=== PATIENT | female | born 1945 | race Caucasian/White ===

== ENCOUNTER 2017-12-03 06:55 | Emergency (ER) | payer OTHER ==
[2017-12-03 08:56] LABS: URINE BLOOD (Dip) POC 1+ (NEGATIVE); URINE KETONES (Dip) POC 4+ (NEGATIVE); URINE LEUKOCYTE EST (Dip) POC Trace (NEGATIVE); URINE NITRITE (Dip) POC Negative (NEGATIVE); URINE TOTAL PROTEIN POC 2+ (NEGATIVE)
[2017-12-03 08:56] LABS: URINE PH (Dip) POC 5.5 (5.0-8.5)
[2017-12-03] MEDS: SOD CHLORIDE 0.9% 1,000 ML IV (10:00)
[2017-12-03 10:07] LABS: ADD MAN DIFF? NO
[2017-12-03 10:09] LABS: WHITE BLOOD COUNT 9.2 10^3/ul (4.8-10.8)
[2017-12-03 10:09] LABS: BASOPHILS % 0.4 % (0.0-2.0); EOSINOPHILS % 0.2 % (0.0-7.0); HEMATOCRIT 43.6 % (37.0-47.0); HEMOGLOBIN 15.3 g/dl (12.0-16.0); LYMPHOCYTES # 1.6 10^3/ul (0.8-2.9); LYMPHOCYTES % 17.3 % (15.0-51.0); MEAN CORPUSCULAR HEMOGLOBIN 30.1 pg (29.0-33.0); MEAN CORPUSCULAR HGB CONC 35.1 g/dl (32.0-37.0); MEAN CORPUSCULAR VOLUME 85.8 fl (82.0-101.0); MONOCYTE # 0.4 10^3/ul (0.3-0.9); MONOCYTES % 4.3 % (0.0-11.0); NEUTROPHIL # 7.1 10^3/ul (1.6-7.5); NEUTROPHILS % 77.4 % (39.0-77.0); PLATELET COUNT 314 10^3/UL (140-415); RED BLOOD COUNT 5.08 10^6/ul (4.20-5.40); RED CELL DISTRIBUTION WIDTH 11.9 % (11.5-14.5)
[2017-12-03 10:32] LABS: ALANINE AMINOTRANSFERASE 21 IU/L (13-69); ALBUMIN 4.8 g/dl (3.3-4.9); ALBUMIN/GLOBULIN RATIO 1.26; ALKALINE PHOSPHATASE 163 IU/L (42-121); ANION GAP 21 (8-16); ASPARTATE AMINO TRANSFERASE 19 IU/L (15-46); BILIRUBIN,INDIRECT 0.4 mg/dl (0-1.1); BILIRUBIN,TOTAL 0.4 mg/dl (0.2-1.3); BLOOD UREA NITROGEN 12 mg/dl (7-20); CALCIUM 9.5 mg/dl (8.4-10.2); CARBON DIOXIDE 26 mmol/L (21-31); CHLORIDE 97 mmol/L (97-110); CREATININE 0.53 mg/dl (0.44-1.00); POTASSIUM 3.3 mmol/L (3.5-5.1); SODIUM 141 mmol/L (135-144); TOTAL PROTEIN 8.6 g/dl (6.1-8.1)
[2017-12-03 10:34] LABS: GLUCOSE 434 mg/dl (70-220)
[2017-12-03] MEDS: POTASSIUM CHLORIDE (SR) 20 MEQ TAB PO (11:53)
[2017-12-03 11:54] LABS: ADD UMIC YES; UR ASCORBIC ACID NEGATIVE (NEGATIVE); UR BILIRUBIN (Dip) NEGATIVE (NEGATIVE); UR BLOOD (Dip) 1+ mg/dL (NEGATIVE); UR CLARITY SLIGHTLY CLOUDY (CLEAR); UR COLOR STRAW (YELLOW); UR GLUCOSE (Dip) 3+ mg/dL (NEGATIVE); UR KETONES (Dip) 1+ mg/dL (NEGATIVE); UR LEUKOCYTE ESTERASE (Dip) 1+ Leu/ul (NEGATIVE); UR NITRITE (Dip) NEGATIVE (NEGATIVE); UR RBC 4 /HPF (0-5); UR SPECIFIC GRAVITY (Dip) 1.031 (1.003-1.030); UR TOTAL PROTEIN (Dip) 2+ mg/dl (NEGATIVE); UR UROBILINOGEN (Dip) NEGATIVE (NEGATIVE); UR WBC 135 /HPF (0-5)
[2017-12-03] MEDS: CEPHALEXIN 500 MG CAP PO (12:20)
== END 2017-12-03 12:24 | disposition home or self-care (01) ==
LOC: FTE 06:55
DX: E11.65 Type 2 diabetes mellitus with hyperglycemia (principal); N39.0 Urinary tract infection, site not specified; I10 Essential (primary) hypertension; Z79.82 Long term (current) use of aspirin; Z79.84 Long term (current) use of oral hypoglycemic drugs
CPT/HCPCS: 80053; 81001; 81003; 82962; 85025; 87086; 99284-25

== ENCOUNTER 2018-03-03 16:49 | Observation (INO) | payer OTHER ==
[2018-03-03] MEDS: SOD CHLORIDE 0.9% 500 ML IV (19:43)
[2018-03-03 19:50] LABS: ADD MAN DIFF? NO
[2018-03-03 19:53] LABS: BASOPHIL # 0.1 10^3/ul (0.0-0.1); BASOPHILS % 0.7 % (0.0-2.0); EOSINOPHILS % 0.2 % (0.0-7.0); HEMATOCRIT 41.2 % (37.0-47.0); HEMOGLOBIN 14.7 g/dl (12.0-16.0); LYMPHOCYTES # 2.3 10^3/ul (0.8-2.9); LYMPHOCYTES % 27.9 % (15.0-51.0); MEAN CORPUSCULAR HEMOGLOBIN 31.2 pg (29.0-33.0); MEAN CORPUSCULAR HGB CONC 35.7 g/dl (32.0-37.0); MEAN CORPUSCULAR VOLUME 87.5 fl (82.0-101.0); MEAN PLATELET VOLUME 10.6 fl (7.4-10.4); MONOCYTE # 0.7 10^3/ul (0.3-0.9); MONOCYTES % 8.1 % (0.0-11.0); NEUTROPHIL # 5.2 10^3/ul (1.6-7.5); NEUTROPHILS % 62.7 % (39.0-77.0); PLATELET COUNT 339 10^3/UL (140-415); RED BLOOD COUNT 4.71 10^6/ul (4.20-5.40); RED CELL DISTRIBUTION WIDTH 12.1 % (11.5-14.5)
[2018-03-03 19:53] LABS: WHITE BLOOD COUNT 8.3 10^3/ul (4.8-10.8)
[2018-03-03 20:18] LABS: ALANINE AMINOTRANSFERASE 26 IU/L (13-69); ALBUMIN 4.7 g/dl (3.3-4.9); ALBUMIN/GLOBULIN RATIO 1.17; ALKALINE PHOSPHATASE 165 IU/L (42-121); ANION GAP 20 (8-16); ASPARTATE AMINO TRANSFERASE 26 IU/L (15-46); BILIRUBIN,INDIRECT 0.4 mg/dl (0-1.1); BILIRUBIN,TOTAL 0.4 mg/dl (0.2-1.3); BLOOD UREA NITROGEN 17 mg/dl (7-20); CALCIUM 9.6 mg/dl (8.4-10.2); CARBON DIOXIDE 23 mmol/L (21-31); CHLORIDE 96 mmol/L (97-110); CREATININE 0.59 mg/dl (0.44-1.00); GLUCOSE 360 mg/dl (70-220); POTASSIUM 4.1 mmol/L (3.5-5.1); SODIUM 135 mmol/L (135-144); TOTAL PROTEIN 8.7 g/dl (6.1-8.1)
[2018-03-03 20:30] LABS: TROPONIN-I < 0.012 ng/ml (0.000-0.120)
[2018-03-03] MEDS: LABETALOL HCL 20MG INJ IV (20:48)
[2018-03-03 20:50] LABS: MAGNESIUM 1.8 mg/dl (1.7-2.5)
[2018-03-03] MEDS ORDERED: ACETAMINOPHEN 325 MG TAB PO (22:30)
[2018-03-03] MEDS ORDERED: ONDANSETRON 4 MG INJ IV (22:30)
[2018-03-04] MEDS ORDERED: METOPROLOL 25 MG TAB PO ×2 (03:30→09:00)
[2018-03-04] MEDS: METOPROLOL 25 MG TAB PO (03:37)
[2018-03-04] MEDS ORDERED: NITROGLYCERIN (SL) 0.4 MG TAB SL ×2 (05:00→08:00)
[2018-03-04] MEDS ORDERED: ACETAMINOPHEN 325 MG TAB PO (05:00)
[2018-03-04] MEDS ORDERED: morphine 2 MG INJ IV (05:00)
[2018-03-04] MEDS ORDERED: ONDANSETRON 4 MG INJ IV (05:00)
[2018-03-04] MEDS: hydrALAzine 20 MG INJ IV (05:23)
[2018-03-04] MEDS ORDERED: GLUCOSE GEL 15 GRAM TUBE PO ×2 (05:30)
[2018-03-04] MEDS ORDERED: GLUCAGON 1 MG INJ IM (05:30)
[2018-03-04] MEDS ORDERED: GLUCOSE GEL 15 GRAM TUBE BUCCAL (05:30)
[2018-03-04] MEDS ORDERED: DEXTROSE 50% 50 ML SYRINGE IV ×2 (05:30)
[2018-03-04 06:14] LABS: ADD MAN DIFF? NO
[2018-03-04 06:27] LABS: WHITE BLOOD COUNT 7.2 10^3/ul (4.8-10.8)
[2018-03-04 06:27] LABS: BASOPHIL # 0.1 10^3/ul (0.0-0.1); BASOPHILS % 0.7 % (0.0-2.0); EOSINOPHILS % 0.6 % (0.0-7.0); HEMOGLOBIN 14.2 g/dl (12.0-16.0); LYMPHOCYTES # 1.7 10^3/ul (0.8-2.9); LYMPHOCYTES % 24.2 % (15.0-51.0); MEAN CORPUSCULAR HEMOGLOBIN 30.3 pg (29.0-33.0); MEAN CORPUSCULAR HGB CONC 34.6 g/dl (32.0-37.0); MEAN CORPUSCULAR VOLUME 87.6 fl (82.0-101.0); MEAN PLATELET VOLUME 10.7 fl (7.4-10.4); MONOCYTE # 0.7 10^3/ul (0.3-0.9); MONOCYTES % 9.4 % (0.0-11.0); NEUTROPHIL # 4.7 10^3/ul (1.6-7.5); NEUTROPHILS % 64.8 % (39.0-77.0); PLATELET COUNT 336 10^3/UL (140-415); RED BLOOD COUNT 4.68 10^6/ul (4.20-5.40); RED CELL DISTRIBUTION WIDTH 12.2 % (11.5-14.5)
[2018-03-04 06:41] LABS: INR 0.93; PROTIME 12.5 Sec (11.9-14.9)
[2018-03-04 06:42] LABS: PARTIAL THROMBOPLASTIN TIME 29.4 Sec (25.0-35.0)
[2018-03-04] MEDS: INSULIN GLARGINE [LANtus] 3 ML PEN SC ×2 (06:48→08:21)
[2018-03-04 07:01] LABS: ALANINE AMINOTRANSFERASE 16 IU/L (13-69); ALBUMIN 4.2 g/dl (3.3-4.9); ALKALINE PHOSPHATASE 139 IU/L (42-121); ANION GAP 16 (8-16); ASPARTATE AMINO TRANSFERASE 20 IU/L (15-46); BILIRUBIN,INDIRECT 0.4 mg/dl (0-1.1); BILIRUBIN,TOTAL 0.4 mg/dl (0.2-1.3); BLOOD UREA NITROGEN 9 mg/dl (7-20); CALCIUM 9.3 mg/dl (8.4-10.2); CARBON DIOXIDE 24 mmol/L (21-31); CHLORIDE 102 mmol/L (97-110); CHOL/HDL RATIO 3.1 RATIO; CHOLESTEROL 195 mg/dl (100-200); CREATININE 0.49 mg/dl (0.44-1.00); GLUCOSE 257 mg/dl (70-220); HDL CHOLESTEROL 62 mg/dl (33-92); LDL CHOLESTEROL,CALCULATED 118 mg/dl; MAGNESIUM 1.8 mg/dl (1.7-2.5); PHOSPHORUS 3.4 mg/dl (2.5-4.9); POTASSIUM 4.2 mmol/L (3.5-5.1); SODIUM 138 mmol/L (135-144); TRIGLYCERIDES 73 mg/dl (0-149)
[2018-03-04] MEDS: NITROGLYCERIN (SL) 0.4 MG TAB SL (07:30)
[2018-03-04 07:45] LABS: HEMOGLOBIN A1C 9.5 % (0-5.9)
[2018-03-04] MEDS: metFORMIN 500 MG TAB PO (08:14)
[2018-03-04] MEDS: METOPROLOL (XL) 100 MG TAB PO (08:15)
[2018-03-04] MEDS: ASPIRIN 81 MG TAB PO (08:15)
[2018-03-04] MEDS: EZETIMIBE 10 MG TAB PO (08:16)
[2018-03-04] MEDS: ASPIRIN (EC) 81 MG TAB PO (08:16)
[2018-03-04] MEDS: VALSARTAN 160 MG TAB PO ×2 (08:16→20:25)
[2018-03-04] MEDS: HEPARIN 5,000 UNIT/0.5 ML VIAL SC ×2 (08:19→20:28)
[2018-03-04] MEDS: INSULIN ASPART [NOVOLOG] 3 ML PEN SC ×5 (08:21→20:25)
[2018-03-04] MEDS ORDERED: METOPROLOL (XL) 100 MG TAB PO (12:30)
[2018-03-04] MEDS: CEPHALEXIN 500 MG CAP PO ×3 (13:09→20:25)
[2018-03-04] MEDS ORDERED: metFORMIN 500 MG TAB PO ×2 (17:55→21:00)
[2018-03-04] MEDS: ATORVASTATIN 20 MG TAB PO (20:25)
[2018-03-05] MEDS: hydrALAzine 20 MG INJ IV ×3 (00:20→17:51)
[2018-03-05 01:48] LABS: TROPONIN-I 0.116 ng/ml (0.000-0.120)
[2018-03-05] MEDS: ACCU-CHEK XX (02:00)
[2018-03-05] MEDS ORDERED: ACCU-CHEK XX (02:00)
[2018-03-05] MEDS: ACETAMINOPHEN 325 MG TAB PO (03:56)
[2018-03-05] MEDS: DEXTROSE 5%-0.45% NACL 1,000 ML IV (05:32)
[2018-03-05 07:16] LABS: ADD MAN DIFF? NO
[2018-03-05 07:21] LABS: BASOPHIL # 0.1 10^3/ul (0.0-0.1); EOSINOPHILS # 0.1 10^3/ul (0.0-0.5); EOSINOPHILS % 2.2 % (0.0-7.0); HEMATOCRIT 39.1 % (37.0-47.0); HEMOGLOBIN 13.7 g/dl (12.0-16.0); LYMPHOCYTES % 33.4 % (15.0-51.0); MEAN CORPUSCULAR HEMOGLOBIN 30.9 pg (29.0-33.0); MEAN CORPUSCULAR VOLUME 88.1 fl (82.0-101.0); MEAN PLATELET VOLUME 10.8 fl (7.4-10.4); MONOCYTE # 0.5 10^3/ul (0.3-0.9); MONOCYTES % 9.2 % (0.0-11.0); NEUTROPHIL # 3.2 10^3/ul (1.6-7.5); PLATELET COUNT 330 10^3/UL (140-415); RED BLOOD COUNT 4.44 10^6/ul (4.20-5.40); RED CELL DISTRIBUTION WIDTH 12.2 % (11.5-14.5)
[2018-03-05 07:21] LABS: WHITE BLOOD COUNT 5.9 10^3/ul (4.8-10.8)
[2018-03-05 07:57] LABS: TROPONIN-I 0.106 ng/ml (0.000-0.120)
[2018-03-05 07:59] LABS: ANION GAP 16 (8-16); BLOOD UREA NITROGEN 15 mg/dl (7-20); CARBON DIOXIDE 26 mmol/L (21-31); CHLORIDE 95 mmol/L (97-110); CREATININE 0.57 mg/dl (0.44-1.00); GLUCOSE 140 mg/dl (70-220); POTASSIUM 3.8 mmol/L (3.5-5.1); SODIUM 133 mmol/L (135-144)
[2018-03-05] MEDS: INSULIN ASPART [NOVOLOG] 3 ML PEN SC ×7 (08:18→21:27)
[2018-03-05] MEDS: INSULIN GLARGINE [LANtus] 3 ML PEN SC (08:19)
[2018-03-05] MEDS: HEPARIN 5,000 UNIT/0.5 ML VIAL SC ×2 (08:20→21:00)
[2018-03-05] MEDS: CEPHALEXIN 500 MG CAP PO ×2 (08:23→13:52)
[2018-03-05] MEDS: VALSARTAN 160 MG TAB PO (08:23)
[2018-03-05] MEDS: ASPIRIN (EC) 81 MG TAB PO (08:23)
[2018-03-05] MEDS: METOPROLOL (XL) 100 MG TAB PO (08:24)
[2018-03-05] MEDS: EZETIMIBE 10 MG TAB PO (08:24)
[2018-03-05] MEDS: metFORMIN 500 MG TAB PO (08:24)
[2018-03-05] MEDS: REGADENOSON 0.4 MG/5 ML SYG (12:13)
[2018-03-05 15:06] LABS: TROPONIN-I 0.061 ng/ml (0.000-0.120)
[2018-03-05] MEDS: ATORVASTATIN 20 MG TAB PO (21:22)
[2018-03-05] MEDS ORDERED: morphine LIQ (10 MG/5 ML) CUP PO (21:30)
[2018-03-05] MEDS: LATANOPROST 0.005% 2.5 ML OPH BOTH EYES (21:31)
[2018-03-06] MEDS: hydrALAzine 20 MG INJ IV (02:32)
[2018-03-06] MEDS: ACCU-CHEK XX (02:32)
[2018-03-06 07:17] LABS: ADD MAN DIFF? NO
[2018-03-06 07:34] LABS: BASOPHILS % 0.6 % (0.0-2.0); EOSINOPHILS # 0.1 10^3/ul (0.0-0.5); EOSINOPHILS % 1.1 % (0.0-7.0); HEMATOCRIT 41.5 % (37.0-47.0); HEMOGLOBIN 14.3 g/dl (12.0-16.0); LYMPHOCYTES # 1.8 10^3/ul (0.8-2.9); LYMPHOCYTES % 34.1 % (15.0-51.0); MEAN CORPUSCULAR HEMOGLOBIN 30.4 pg (29.0-33.0); MEAN CORPUSCULAR HGB CONC 34.5 g/dl (32.0-37.0); MEAN CORPUSCULAR VOLUME 88.1 fl (82.0-101.0); MONOCYTE # 0.4 10^3/ul (0.3-0.9); MONOCYTES % 6.9 % (0.0-11.0); NEUTROPHIL # 3.1 10^3/ul (1.6-7.5); NEUTROPHILS % 57.1 % (39.0-77.0); PLATELET COUNT 346 10^3/UL (140-415); RED BLOOD COUNT 4.71 10^6/ul (4.20-5.40); RED CELL DISTRIBUTION WIDTH 12.1 % (11.5-14.5)
[2018-03-06 07:34] LABS: WHITE BLOOD COUNT 5.3 10^3/ul (4.8-10.8)
[2018-03-06] MEDS: INSULIN ASPART [NOVOLOG] 3 ML PEN SC ×5 (07:44→20:38)
[2018-03-06] MEDS: HEPARIN 5,000 UNIT/0.5 ML VIAL SC ×2 (07:45→20:28)
[2018-03-06 07:54] LABS: INR 0.93; PROTIME 12.6 Sec (11.9-14.9)
[2018-03-06 07:55] LABS: PARTIAL THROMBOPLASTIN TIME 29.8 Sec (25.0-35.0)
[2018-03-06] MEDS: EZETIMIBE 10 MG TAB PO (07:55)
[2018-03-06] MEDS: metFORMIN 500 MG TAB PO (07:56)
[2018-03-06] MEDS: INSULIN GLARGINE [LANtus] 3 ML PEN SC (08:00)
[2018-03-06] MEDS: ASPIRIN (EC) 81 MG TAB PO (08:05)
[2018-03-06] MEDS: AMLODIPINE 5 MG TAB PO (08:05)
[2018-03-06] MEDS: VALSARTAN 160 MG TAB PO (08:05)
[2018-03-06 08:06] LABS: ANION GAP 16 (8-16); BLOOD UREA NITROGEN 18 mg/dl (7-20); CALCIUM 9.2 mg/dl (8.4-10.2); CARBON DIOXIDE 25 mmol/L (21-31); CHLORIDE 94 mmol/L (97-110); CREATININE 0.57 mg/dl (0.44-1.00); GLUCOSE 147 mg/dl (70-220); POTASSIUM 4.2 mmol/L (3.5-5.1); SODIUM 131 mmol/L (135-144)
[2018-03-06] MEDS: METOPROLOL (XL) 100 MG TAB PO (08:06)
[2018-03-06] MEDS: LATANOPROST 0.005% 2.5 ML OPH BOTH EYES (20:21)
[2018-03-06] MEDS: ATORVASTATIN 20 MG TAB PO (20:21)
[2018-03-07] MEDS: hydrALAzine 20 MG INJ IV ×2 (01:00→05:43)
[2018-03-07] MEDS: ACCU-CHEK XX (02:00)
[2018-03-07 06:04] LABS: ADD MAN DIFF? NO
[2018-03-07 06:09] LABS: BASOPHIL # 0.1 10^3/ul (0.0-0.1); EOSINOPHILS # 0.2 10^3/ul (0.0-0.5); EOSINOPHILS % 2.5 % (0.0-7.0); HEMATOCRIT 39.6 % (37.0-47.0); HEMOGLOBIN 13.8 g/dl (12.0-16.0); LYMPHOCYTES # 2.7 10^3/ul (0.8-2.9); LYMPHOCYTES % 44.4 % (15.0-51.0); MEAN CORPUSCULAR HEMOGLOBIN 30.5 pg (29.0-33.0); MEAN CORPUSCULAR HGB CONC 34.8 g/dl (32.0-37.0); MEAN CORPUSCULAR VOLUME 87.4 fl (82.0-101.0); MEAN PLATELET VOLUME 10.3 fl (7.4-10.4); MONOCYTE # 0.5 10^3/ul (0.3-0.9); MONOCYTES % 7.9 % (0.0-11.0); NEUTROPHIL # 2.7 10^3/ul (1.6-7.5); NEUTROPHILS % 43.9 % (39.0-77.0); PLATELET COUNT 341 10^3/UL (140-415); RED BLOOD COUNT 4.53 10^6/ul (4.20-5.40); RED CELL DISTRIBUTION WIDTH 12.1 % (11.5-14.5)
[2018-03-07 07:06] LABS: ANION GAP 15 (8-16); BLOOD UREA NITROGEN 14 mg/dl (7-20); CARBON DIOXIDE 24 mmol/L (21-31); CHLORIDE 99 mmol/L (97-110); GLUCOSE 136 mg/dl (70-220); SODIUM 134 mmol/L (135-144)
[2018-03-07] MEDS: VALSARTAN 160 MG TAB PO (08:04)
[2018-03-07] MEDS: ASPIRIN (EC) 81 MG TAB PO (08:04)
[2018-03-07] MEDS: AMLODIPINE 10 MG TAB PO (08:05)
[2018-03-07] MEDS: metFORMIN 500 MG TAB PO (08:05)
[2018-03-07] MEDS: EZETIMIBE 10 MG TAB PO (08:05)
[2018-03-07] MEDS: INSULIN GLARGINE [LANtus] 3 ML PEN SC (08:07)
[2018-03-07] MEDS: HEPARIN 5,000 UNIT/0.5 ML VIAL SC (08:07)
[2018-03-07] MEDS: INSULIN ASPART [NOVOLOG] 3 ML PEN SC ×2 (08:07→12:22)
[2018-03-07] MEDS: METOPROLOL (XL) 100 MG TAB PO (08:10)
[2018-03-07] MEDS: SOD CHLORIDE 0.9% 100 ML (09:27)
[2018-03-07] MEDS: IODIXANOL LOCM 100 ML BTL (09:28)
[2018-03-07] MEDS: NITROGLYCERIN AEROSOL (4.9 GM) (09:52)
[2018-03-07] MEDS: DIPHENHYDRAMINE 50 MG CAP PO (13:10)
[2018-03-07] MEDS: DIAZEPAM 5 MG TAB PO (13:10)
== END 2018-03-07 17:00 | disposition home or self-care (01) ==
LOC: TEL 22:19 → E/R 16:49
DX: R07.9 Chest pain, unspecified (principal); I16.0 Hypertensive urgency; I10 Essential (primary) hypertension; M19.90 Unspecified osteoarthritis, unspecified site; R00.2 Palpitations; E78.5 Hyperlipidemia, unspecified; E11.40 Type 2 diabetes mellitus with diabetic neuropathy, unspecified; R93.1 Abnormal findings on diagnostic imaging of heart and coronary circulation; F32.9 Major depressive disorder, single episode, unspecified; F41.9 Anxiety disorder, unspecified; Z79.84 Long term (current) use of oral hypoglycemic drugs; Z79.82 Long term (current) use of aspirin; Z86.73 Personal history of transient ischemic attack (TIA), and cerebral infarction without residual deficits
CPT/HCPCS: 36415; 70450; 71045; 75571; 75574; 78452; 80048; 80053; 80061; 82962; 83036; 83735; 84100; 84443; 84484; 85025; 85610; 85730; 93005; 93017; 93306; 96374; 97161; 99285-25; G0378

== ENCOUNTER 2018-12-19 14:39 | Emergency (ER) | payer SELFPAY, OTHER | END 2018-12-19 14:49 | disposition left against medical advice (07) | LOC: E/R 14:39 | DX: Z53.21 Procedure and treatment not carried out due to patient leaving prior to being seen by health care provider (principal) ==